=== PATIENT | female | born 1995 | race Asian ===

== ENCOUNTER 2017-11-12 15:57 | Emergency (ER) | payer OTHER ==
[2017-11-12 16:25] VITALS: BP 98/61
--- NOTE | 2017-11-12 16:53 | EDPHY ---
H & P Time Seen by Provider: 11/12/17 16:28 HPI/ROS: CHIEF COMPLAINT: Decreased taste on tongue x1 month HISTORY OF PRESENT ILLNESS: 22-year-old female generally healthy states that 6 weeks ago while in [place] she developed stomatitis to her tongue which lasted a few days. 2 weeks later she noticed decreased taste to the anterior aspect of her tongue only. States that she has normal taste to the posterior and lateral aspects of the tongue. She saw a physician in [place] , unknown name, unknown facility, had laboratory studies drawn which she was told or abnormal told to have these be checked in 1 month. She does not have any documentation of this, does not know the name of the laboratory studies that were drawn. States that she continues to remain symptomatic. Denies new complaints. Normal smell. Normal hearing. She denies: Dysphagia, odynophagia, headache, neck pain, major or minor head injury, major or minor neck pain or injury, neck manipulation, fall, hearing loss, tinnitus, dizziness, neck pain. REVIEW OF SYSTEMS: 10 systems reviewed and negative with the exception of the elements mentioned in the history of present illness PAST MEDICAL & SURGICAL HISTORY: No pertinent medical or surgical history SOCIAL HISTORY: nonsmoker, student at [employer] (Prior to examination, patient consented to physical exam, hands were washed and my usual and customary physical exam procedures followed) 1) GENERAL: Well-developed, well-nourished, alert and oriented. Appears to be in no acute distress. Smiling 2) HEAD: Normocephalic, atraumatic 3) HEENT: Pupils equal, round, reactive to light bilaterally. Sclera anicteric. Nasopharynx, oropharynx, clear, no lesions. Moist Mucous membranes. No lesions. No vesicles to the face. Ears bilaterally with normal tympanic membranes. 4) NECK: Full range of motion, no meningeal signs. 5) LUNGS: Clear auscultation bilaterally, no wheezes, no rhonchi, no retractions. 6) HEART: Regular rate and rhythm, no murmur, no heave, no gallop. 7) ABDOMEN: No guarding, no rebound, no focal tenderness, negative McBurney's, negative Tinoco's, negative Rovsing's, negative peritoneal sign, 8) MUSCULOSKELETAL: Moving all extremities, no focal areas of tenderness, no obvious trauma. No peripheral edema or discoloration. 9) BACK: No CVA tenderness, no midline vertebral tenderness, no fluctuance, no step-off, no obvious trauma, no visual or palpable abnormality. 10) SKIN: No rash, no petechiae. 11) Psychiatric: Patient is oriented X 3, there is no agitation. 12) NEURO: Awake, alert, and oriented to person, place and time. Answers questions appropriately. There were no obvious focal neurologic abnormalities. No cerebellar dysfunction. Cranial nerves 1 through to 12 intact. Normal steady gait. Upper and lower extremities bilaterally with strength 5 / 5, reflexes 2+. DIFFERENTIAL DIAGNOSIS: In no particular order including but not limited to central etiology, peripheral etiology, CVA, cervico-cranial vessel dissection Smoking Status: Never smoked Constitutional: Initial Vital Signs Temperature (C) 37.1 C 11/12/17 16:22 Heart Rate 72 11/12/17 16:22 Respiratory Rate 16 11/12/17 16:22 Blood Pressure 98/61 L 11/12/17 16:22 O2 Sat (%) 95 11/12/17 16:22 O2 Delivery Mode Room Air Allergies/Adverse Reactions: No Known Allergies Allergy (Unverified 11/12/17 16:22) Home Medications: Medication Instructions Recorded NK [No Known Home Meds] 11/12/17 MDM/Departure - MDM ED Course/Re-evaluation: This patient has a nonfocal neurologic examination. I do not identify emergent condition requiring intervention or evaluation from the emergency department. She states that she was told by a physician in [facility] that she needs recheck of unknown laboratory studies 1 month. Unfortunately, the patient does not know the name of this physician, does not known the name of the clinic or hospital, does not have the name of the laboratory tests. We discussed possible central versus peripheral etiology. At this time I do not think that imaging such as MRI currently indicated. I have recommend follow up with neurology. I have also recommend she try to obtain medical records from her medical visit 1 month ago [place]. She feels comfortable with this plan. All questions and concerns addressed by myself. I saw this patient independently based on established practice protocols. Care of patient under supervision of secondary supervising physician Dr Hansen with whom I discussed case. - Depart Disposition: Home, Routine, Self-Care Clinical Impression: Decreased taste and smell Condition: Good Instructions: Oral Mucositis (ED) Additional Instructions: If you develop headache, nausea, vomiting, neck pain or any other symptoms return to the ER. Referrals: Bret Gregory DO [Medical Doctor] - As per Instructions
== END 2017-11-12 17:16 | disposition home or self-care (01) ==
DX: R43.2 Parageusia (principal); R43.0 Anosmia